=== PATIENT | male | born 1980 | race Caucasian/White ===

== ENCOUNTER 2022-11-20 08:19 | Day surgery (SDC) | payer MEDICAID ==
[~2022-11-20] VITALS: Ht 165.1 cm; Wt 111.4 kg
[~2022-11-20 08:19] MED LIST: SODIUM CHLORIDE 0.9% 1,000 ML ONE
[2022-11-20] MEDS ORDERED: PROPOFOL 1% 20 ML VIAL IVP ONE (08:20)
[2022-11-20 09:52] LABS: COVID AG,FIA SOURCE NASOPHARYNGEAL
[2022-11-20] MEDS ORDERED: SODIUM CHLORIDE 0.9% 1,000 ML IV ONE (12:00)
== END 2022-11-20 14:40 | disposition home or self-care (01) ==
LOC: SURGERY 08:19
PROVIDERS: ATTEND Internal Medicine Gastroenterology
DX: K63.5 Polyp of colon (principal); K64.8 Other hemorrhoids; K57.30 Diverticulosis of large intestine without perforation or abscess without bleeding; Z72.89 Other problems related to lifestyle; Z20.822 Contact with and (suspected) exposure to COVID-19
CPT/HCPCS: 45385; 87426; 88305; C1769; J2704; J7030; C9803